=== PATIENT | male | born 1955 | race Caucasian/White ===

== ENCOUNTER → 2016-05-03 | Outpatient (CLI) | payer OTHER ==
--- NOTE | 2016-05-03 12:03 | RAD ---
EXAM DESCRIPTION: Arthrogram Shoulder Right CLINICAL HISTORY: 60 years Male, INTERNAL DERANGEMENT OF RIGHT SHOULDER COMPARISON: None. FINDINGS: Total exam dose 71.87 mGy The risks, benefits and alternatives of a shoulder arthrogram were discussed with the patient including risks of pain, bleeding, infection and nondiagnostic result. The patient was given an opportunity to ask questions about the procedure, its risks, benefits and alternatives. He stated he understood these things and wished to proceed. The patient denied any known relevant drug allergies. A time-out was conducted prior to the procedure. The patient was placed in the supine position on the fluoroscopy table and a suitable access site anterior to the shoulder joint was identified and marked on the patient's skin surface. The skin was prepped and draped in the usual sterile manner. Approximately 4 cc of 1% lidocaine were used for local anesthesia. Using real-time fluoroscopic guidance, a 22 gauge spinal needle was placed into the right shoulder joint space and approximately 13 cc of a solution containing dilute gadolinium contrast were injected into the shoulder joint. The spinal needle was withdrawn, and the shoulder was exercised. Multiple fluoroscopic images of the shoulder were obtained in both neutral and abducted positions with internal and external rotation. No rotator cuff tear or other fluoroscopically apparent right shoulder abnormality is seen. The patient was sent to the MR suite for completion of this exam. The patient tolerated the procedure well, and there were no postprocedure complications. IMPRESSION: Uncomplicated right shoulder arthrogram as detailed above. Electronically signed by: Vamshi Navarrete MD 05/03/2016 12:02 PM CDT
--- NOTE | 2016-05-03 13:23 | MRI ---
Study: MRI Arthrogram of the Right Shoulder. Indication: Right shoulder pain internal derangement. Fall injury. Technique: Multiplanar, multi sequence MRI arthrogram of the right shoulder was obtained after intra-articular injection of contrast. Please see the accompanying report regarding the procedural portion of this exam. Comparison: None. Findings: Remote/healed mid clavicular fracture noted but with slight malalignment as there is one shaft width anterior displacement of the medial fracture fragment. Severe AC joint osteoarthritis with reactive marrow edema distal clavicular head and acromion. Moderate size joint effusion. Type II acromion with moderate lateral downsloping. Trace subacromial/subdeltoid bursal fluid. Supraspinatus and infraspinatus tendinosis and low-grade attenuation throughout. No full-thickness tear. Intermediate grade articular tear noted at the mid infraspinatus tendon insertion measuring 7 mm AP by 4 mm transverse. No tendon retraction. Subscapularis tendinosis with irregular intermediate grade interstitial and articular tearing throughout the tendon. Teres minor tendon intact. No atrophy or fatty infiltration rotator cuff muscular atrophy. Long head biceps tendinosis and longitudinal split tearing noted without transection. Circumferential labral degeneration. Minimal glenohumeral joint osteoarthritis. No acute fracture or osseous contusion. Please note that is slightly increased concentration of gadolinium which results in the contrast demonstrating diminished T1/T2 signal. Impression: Supraspinatus and infraspinatus tendinosis with focal intermediate grade articular tear of the mid infraspinatus tendon insertion. Irregular intermediate grade interstitial and articular tearing throughout the subscapularis tendon. Long head biceps tendinosis with longitudinal split tearing. Circumferential labral degeneration. Minimal glenohumeral joint osteoarthritis. Severe AC joint osteoarthritis. Remote/healed clavicular fracture. Electronically signed by: Thad Gilbert MD 05/03/2016 1:22 PM CDT
== END | disposition home or self-care (01) ==
LOC: MRI 08:07
PROVIDERS: ATTEND Orthopaedic Surgery
DX: M75.111 Incomplete rotator cuff tear or rupture of right shoulder, not specified as traumatic (principal)

== ENCOUNTER → 2017-05-05 | Outpatient (CLI) | payer OTHER | LOC: GMAL 11:39 | PROVIDERS: ATTEND Family Medicine | DX: D51.3 Other dietary vitamin B12 deficiency anemia (principal); E29.1 Testicular hypofunction; R53.82 Chronic fatigue, unspecified; E55.9 Vitamin D deficiency, unspecified; Z12.5 Encounter for screening for malignant neoplasm of prostate | CPT/HCPCS: 82306; 82607; 84402; 84403; 84443; G0103 ==

== ENCOUNTER 2017-08-22 05:48 | Day surgery (SDC) | payer OTHER ==
--- NOTE | 2017-08-20 08:27 | SSS ---
CHIEF COMPLAINT: Need for screening colonoscopy. HISTORY OF PRESENT ILLNESS: Mr. Montelongo is a 61-year-old male who presented to my clinic for routine followup. It was noted that he was due for a repeat colonoscopy. He had had a previous colonoscopy 12 years ago that was negative. He is agreeable with risks and benefits of repeat colonoscopy. He denies any symptoms referable to his bowels, specifically no abdominal pain, changes in his bowel habits, blood in his stool or changes in his weight. PAST MEDICAL HISTORY: 1. Hyperlipidemia in the form of low HDL. 2. Benign prostatic hypertrophy. 3. Low testosterone. 4. Fracture of his right talus in August of 2010. PAST SURGICAL HISTORY: 1. Vasectomy in 1985. 2. Colonoscopy by this physician in March of 2005 that was negative other than grade 1 internal hemorrhoids. CURRENT MEDICATIONS: 1. Lipitor. ALLERGIES: PENICILLIN WHICH CAUSES RASH AND SIMVASTATIN. FAMILY HISTORY: Father at 77 from congestive heart failure. He had his first myocardial infarction at age 65 and was a smoker. Mother at 66 from lung cancer. She was a smoker. He has two sons, one of whom has asthma. He has two siblings, Patricia and Katharine. SOCIAL HISTORY: He is employed as a regional airline pilot. He is with two kids. He does not smoke. He drinks alcohol very infrequently. REVIEW OF SYSTEMS: Negative except as in the history of present illness. PHYSICAL EXAMINATION: VITAL SIGNS: Blood pressure 124/70. Pulse 73. Weight 220 pounds. Height 5'11 ". GENERAL: He is is awake and alert, in no acute distress. HEENT: Unremarkable. NECK: Supple. LUNGS: Clear. CARDIOVASCULAR: Regular rate and rhythm. ABDOMEN: Benign. RECTAL: Deferred until time of colonoscopy. EXTREMITIES: Without edema. NEUROLOGIC: Nonfocal. DIAGNOSIS: Need for screening colonoscopy. PLAN: Colonoscopy on 08/22/17. #[id number] [facility]ENTERMarbella
[2017-08-22] MEDS ORDERED: LACTATED RINGERS 1,000 ML ONE (06:47)
[2017-08-22] MEDS ORDERED: GLYCOPYRROLATE 0.2 MG/ML VIAL ONE (07:00)
[2017-08-22] MEDS ORDERED: LIDOCAINE 1% 2 ML VIAL INJ ONE (07:00)
[2017-08-22] MEDS ORDERED: PROPOFOL 200 MG/20 ML VIAL IV ONE (07:00)
[2017-08-22] MEDS ORDERED: MIDAZOLAM INJ 2 MG/2 ML VIAL ONE (07:32)
[2017-08-22] MEDS ORDERED: fentaNYL CITRATE INJ 50 MCG/ML AMP ONE (07:32)
--- NOTE | 2017-08-22 08:46 | OP ---
DATE OF PROCEDURE: 08/22/17 PREOPERATIVE DIAGNOSIS: 1. Screening colonoscopy. POSTOPERATIVE DIAGNOSIS: 1. 0.5 x 0.25 cm cecal polyp, biopsied x3 to obliteration. 2. 0.5 x 0.25 cm proximal transverse colon polyp, biopsied x5 to obliteration. 3. 0.75 x 0.5 cm rectal polyp, removed by snare. 4. External skin tag. PROCEDURE: 1. Colonoscopy. SURGEON: Padilla Mancia MD. ESTIMATED BLOOD LOSS: Approximately 1 mL. COMPLICATIONS: No immediate complications. ANESTHESIA: Robinul 0.25 mg, propofol 600 mg, Versed 2 mg and fentanyl 50 mcg administered via Umang Mueller CRNA. TECHNIQUE: After informed consent was obtained from the patient, the patient was taken to the Endoscopy Suite and placed in the left lateral decubitus position. Incremental doses of various medications were given until adequate sedation was obtained. Vital signs were monitored throughout the procedure. Supplemental oxygen was administered throughout the procedure. After adequate sedation was obtained, digital rectal examination was performed, which showed a minimally enlarged prostate without suspicious nodules. The colonoscope was then advanced into the patient's rectum and up through the sigmoid, descending, transverse and ascending colon to the level of the cecum. The usual cecal landmarks were noted and identified. The terminal ileum was entered and photographed. The colonoscope was then slowly withdrawn. The aforementioned polyps were noted upon withdrawal and all removed. No diverticula were noted. There were some grade 1 internal hemorrhoids upon withdrawal noted as well. PLAN: The patient will need repeat colonoscopy pending the path report results , but most likely in 3 years. He is to followup in my office in 7 to 10 days. #[id number] [facility]
[2017-08-22 09:36] VITALS: BP 128/70; TEMP 97.8; O2SAT 97
== END 2017-08-22 09:30 | disposition home or self-care (01) ==
LOC: AMB 05:48
PROVIDERS: ATTEND Family Medicine
DX: Z12.11 Encounter for screening for malignant neoplasm of colon (principal); D12.7 Benign neoplasm of rectosigmoid junction; D12.0 Benign neoplasm of cecum; D12.3 Benign neoplasm of transverse colon; K64.0 First degree hemorrhoids; K64.4 Residual hemorrhoidal skin tags; E78.5 Hyperlipidemia, unspecified; N40.0 Benign prostatic hyperplasia without lower urinary tract symptoms; Z88.0 Allergy status to penicillin; Z79.899 Other long term (current) drug therapy
CPT/HCPCS: 00812; 45380; 45385; J2250; J3010; J3490; J7120

== ENCOUNTER → 2017-10-08 | Outpatient (CLI) | payer OTHER ==
--- NOTE | 2017-10-08 12:43 | MRI ---
EXAM DESCRIPTION: Cervical Spine w/o Contrast: MRI. CLINICAL HISTORY: NECK PAIN. Chronic. Right Leg radiculopathy. COMPARISON: MRI scan lumbar spine without contrast 10/08/2017. TECHNIQUE: Multiplanar MRI, multiple sequences, non-contrast High-field. FINDINGS: C4-5: Minimal disc desiccation. Tiny midline disc bulge. Right uncinate spur and moderate neural foraminal narrowing. Mild left neural foraminal narrowing. Mild canal narrowing with normal facets. C5-6: Disc desiccation and minimal disc space loss. Anterior bulging and endplate ridging. Posterior disc bulge with small osteophytes in the midline abutting the cord. Posterior ligamentum flavum hypertrophy. AP canal diameter 8 mm. Mild right neural foraminal narrowing and moderate left neural foraminal narrowing. Normal facets. C6-7: Anterior disc bulging and endplate ridging. Disc desiccation. Minimal posterior disc bulge. Bilateral uncinate spurs. Mild right neural foraminal narrowing and moderate left neural foraminal narrowing. Mild canal narrowing. C7-T1: Disc desiccation and moderate disc space loss. Modic type II endplate reactive changes. Minimal anterior disc bulge with anterior ridging. Bilateral minimal uncinate spurs. Posterior flavum ligament hypertrophy. Bilateral mild neural foraminal narrowing. Canal is patent. Facets are negative. Normal signal in the remaining discs with no bulging. Disc spaces preserved. Canal and neural foramina are patent. Facets are negative. Spinal alignment neutral. No cord compression or cord edema. Atlantoaxial joint is negative. Base of the cerebellar tonsils is above the foramen magnum. Paravertebral soft tissues are unremarkable. Vertebral bodies are not compressed at any level. Normal marrow signal in the remaining vertebral bodies and the posterior elements. IMPRESSION: 1. No herniated disc, and no neural foraminal stenosis at any level. 2. Right uncinate spur and moderate C4-5 neural foraminal narrowing. 3. Multifactorial mild central canal stenosis at C5-6. Moderate left neural foraminal narrowing. 4. Moderate left neural foraminal narrowing at C6-7. 5. Mild to moderate spondylosis C7-T1. No canal or neural foraminal stenosis. Electronically signed by: Joseph Jennings MD 10/08/2017 12:42 PM CDT
--- NOTE | 2017-10-08 13:43 | MRI ---
EXAM DESCRIPTION: Lumbar Spine w/Contrast : Magnetic Resonance Imaging. CLINICAL HISTORY: LOW BACK PAIN COMPARISON: MRI scan cervical spine on the same visit. TECHNIQUE: Multiplanar, multiple standard sequences, non contrast MRI, lumbar spine. FINDINGS: L5-S1: Disc space maintained with desiccation signal. Trace anterolisthesis with tiny posterior midline disc bulge. Posterior elements are unremarkable. Minimal left foraminal narrowing and moderate narrowing on the right with patency of the canal. Bilateral L5 pars interarticulares defects containing minimal fluid. L4-5: Moderate disc space loss primarily to the left of midline. Modic type I endplate reactive changes in the midline into the left of midline with Schmorl's nodes on both endplates. Bilateral facet arthrosis and ligament hypertrophy. Posterior broad-based disc bulge with trace retrolisthesis, disc is encroaching on the left subarticular recess abutting the descending left L5 nerve. Mild to moderate canal narrowing. Mild right foraminal narrowing with left foraminal stenosis due to encroachment from the facet and left disc spur complex. L3-4: Inferior L3 endplate Schmorl's node with Modic type I endplate reactive changes. Disc desiccation and moderate disc space loss with tiny posterior bulge containing bright T2 annular fissure. Moderate canal narrowing and left subarticular recess narrowing. Minimal hypertrophy of the flavum ligament with intimal facet arthrosis. Bilateral moderate foraminal narrowing. Anterior bright T1 and T2 signal in the L4 endplate. Anterior disc bulge containing bone density fragment. L2-3: Disc space maintained with minimal desiccation. Schmorl's node superior L3 endplate. No posterior disc bulge. Minimal flavum ligament hypertrophy bilaterally. Mild canal narrowing with bilateral foramina patent. L1-2: Minimal disc desiccation with Schmorl's node inferior L1 endplate. Anterior Modic type I endplate reaction superior L2 endplate. No significant posterior disc bulge. Minimal flavum ligament hypertrophy. Canal and foramina are patent. T12-L1: Anterior disc desiccation with no posterior disc bulge. Mild endplate irregularities with no signal change. Canal and neural foramina are patent. Conus terminates at this level. Lordosis maintained with no significant scoliosis. Paravertebral soft tissues minimal paraspinal muscle atrophy.. Otherwise normal marrow signal in the remaining vertebral bodies and the posterior elements. Vertebral bodies are not compressed at any level. IMPRESSION: 1. Trace anterolisthesis at L5-S1 with bilateral L5 pars spondylolysis. Moderate narrowing of the right foramen. 2. Posterior broad-based L4-L5 disc bulge with trace retrolisthesis. Mild spondylosis to the left of midline. Left foraminal stenosis abutting the exiting left L4 nerve. Narrowing of the left subarticular recess abutting the descending left L5 nerve. 3. Mild L3-4 spondylosis. Narrowing of the left subarticular recess abutting the descending left L4 nerve. Posterior midline annular fissure. Anterior hemangioma. Also anterior mild spondylosis L1-2. Schmorl's nodes in multiple endplates. Electronically signed by: Joseph Jennings MD 10/08/2017 1:42 PM CDT
== END ==
LOC: MRI 10:00
PROVIDERS: ATTEND Family Medicine
DX: M51.16 Intervertebral disc disorders with radiculopathy, lumbar region (principal); M47.16 Other spondylosis with myelopathy, lumbar region; M51.46 Schmorl's nodes, lumbar region; M47.893 Other spondylosis, cervicothoracic region

== ENCOUNTER → 2018-06-24 | Outpatient (CLI) | payer OTHER | LOC: GMAL 11:31 | PROVIDERS: ATTEND Family Medicine | DX: D51.3 Other dietary vitamin B12 deficiency anemia (principal); E78.49 Other hyperlipidemia; R53.82 Chronic fatigue, unspecified; E55.9 Vitamin D deficiency, unspecified; Z79.899 Other long term (current) drug therapy ==

== ENCOUNTER → 2018-12-31 | Outpatient (CLI) | payer OTHER | LOC: GMAL 10:32 | PROVIDERS: ATTEND Family Medicine | DX: E29.1 Testicular hypofunction (principal); E78.49 Other hyperlipidemia; Z79.899 Other long term (current) drug therapy; Z12.5 Encounter for screening for malignant neoplasm of prostate | CPT/HCPCS: 84402; 84403; G0103 ==

== ENCOUNTER → 2019-02-04 | Outpatient (CLI) | payer OTHER | LOC: GMAL 10:29 | PROVIDERS: ATTEND Family Medicine | DX: R97.20 Elevated prostate specific antigen [PSA] (principal) ==

== ENCOUNTER → 2019-08-27 | Outpatient (CLI) | payer MEDICARE, OTHER | LOC: GMAL 10:28 | PROVIDERS: ATTEND Family Medicine | DX: D51.3 Other dietary vitamin B12 deficiency anemia (principal); R53.82 Chronic fatigue, unspecified; E55.9 Vitamin D deficiency, unspecified; Z79.899 Other long term (current) drug therapy ==

== ENCOUNTER → 2019-09-17 | Outpatient (CLI) | payer MEDICARE, OTHER ==
--- NOTE | 2019-09-20 09:09 | MRI ---
EXAM DESCRIPTION: MRI right knee CLINICAL HISTORY: Right knee pain. Previous arthroscopy COMPARISON: None. TECHNIQUE: Multiplanar, multisequence MR images of the right knee FINDINGS: Loss of meniscal substance posterior horn and body medial meniscus probably previous partial meniscectomy. Fraying of the superior articular surface posterior horn near the tibial root. Subluxation of the body the meniscus with a blunted free edge and intrameniscal signal. Severe medial femorotibial osteoarthritis. Full-thickness chondral loss along the the anterior half of the tibia over about 2.2 x 1.7 cm and full-thickness chondral loss over the weightbearing medial femoral condyle over about 2.9 x 2 cm. Subchondral bony irregularity and flattened remodeling with sclerosis and osseous edema. Prominent joint line osteophytes Intrameniscal degenerative signal in the posterior horn lateral meniscus with minimal fraying of the articular surfaces. Short segment blunted free edge. No root detachment. Degenerative signal in the anterior horn without root detachment Lateral femorotibial grade 3 chondrosis along the medial aspect of the lateral femorotibial compartment over about 1.5 x 1.7 cm. Grade 4 chondrosis and mild subchondral edema over the adjacent intercondylar margin. Intercondylar osteophytes Patellofemoral chondrosis most significantly affecting lateral femorotibial. Grade 3 and grade 4 chondrosis diffusely throughout the lateral patella and lateral femoral condyle joint line. Prominent marginal osteophytes Severe chronic degeneration of the ACL with diffuse intraligamentous signal. Deformity of the ligament by prominent intercondylar osteophytes. Mild degeneration of the PCL with intraligamentous signal. No acute cruciate ligament injury Bowed medial collateral ligament with bursal fluid/ganglion between the superficial and deep components of the MCL. No acute MCL injury. Fibular collateral ligament intact. Biceps femoris, popliteus and iliotibial band tendons are intact. Patellar and quadriceps tendons and tendons of the posterior medial knee are intact. Large joint effusion. Degenerative synovitis with villous subsynovial fatty proliferation throughout the suprapatellar bursa. Effusion within the popliteal tendon sheath with a couple of intra-articular loose bodies the larger of which measures up to 1.2 cm. Multiloculated/septated recess and synovitis along the anterior lateral joint line IMPRESSION: Post meniscectomy loss of meniscal substance posterior horn and body medial meniscus with degeneration of the residual meniscus manifest by intrameniscal signal and surface fraying. Severe medial femorotibial osteoarthritis Lateral femorotibial and patellofemoral chondrosis Joint effusion, synovitis and a couple intra-articular bodies in the posterior recess Electronically signed by: Ousmane Lopez MD 09/20/2019 9:07 AM CDT
== END ==
LOC: MRI 14:00
PROVIDERS: ATTEND Family Medicine
DX: M17.11 Unilateral primary osteoarthritis, right knee (principal); M23.300 Other meniscus derangements, unspecified lateral meniscus, right knee; M25.461 Effusion, right knee; Z98.890 Other specified postprocedural states; M94.261 Chondromalacia, right knee; M65.9 Synovitis and tenosynovitis, unspecified